=== PATIENT | female | born 1965 | race Caucasian/White ===

== ENCOUNTER 2016-07-30 21:05 | Day surgery (SDC) | payer OTHER ==
[~2016-07-30 21:05] MED LIST: CYMBALTA30 MG; SKELAXIN800 MG PO
[2016-07-30] MEDS ORDERED: PRISTIQ ER100 MG PO (21:26)
[2016-07-30] MEDS ORDERED: SEROQUEL200 M2 PO (21:26)
[2016-07-30] MEDS ORDERED: LAMICTAL100 M2 PO (21:26)
[2016-07-30 22:09] LABS: BASO % 0.2 % (0-2); BASO ABSOLUTE COUNT 0.1 tho/cmm (0.0-0.2); EOS % 0.4 % (0-7); EOSINOPHIL ABSOLUTE COUNT 0.1 tho/cmm (0.0-0.7); HCT-HEMATOCRIT 39.2 % (34.0-49.0); HGB-HEMOGLOBIN 13.5 gm/dl (12.0-15.5); IMMATURE GRANULOCYTES ABSOLUTE 0.05 tho/cmm (0-0.03); IMMATURE GRANULOCYTES PERCENT 0.2 % (0-0.3); LYMPH % 7.5 % (20-45); LYMPH ABSOLUTE COUNT 1.5 tho/cmm (0.8-4.5); MCH (MEAN CORPUSCULAR HGB) 33.3 pg (28.0-32.0); MCHC MEAN CORPUSCULAR HGB CONC 34.4 % (32.0-36.0); MCV (MEAN CELL VOLUME) 96.8 fl (82.0-96.0); MEAN PLATELET VOLUME 10.5 cmc (9.4-12.4); MONO % 7.2 % (0-12); MONOCYTE ABSOLUTE COUNT 1.5 tho/cmm (0.0-1.2); NEUTROPHIL ABSOLUTE COUNT 17.3 tho/cmm (1.6-8.0); NEUTROPHIL-AUTOMATED 17.3 tho/cmm (1.6-8.0); NEUTROPHILS % 84.5 % (40-80); PLATELET COUNT 278 tho/cmm (150-450); RED BLOOD COUNT 4.05 mil/cmm (4.00-5.20); RED CELL DISTRIBUTION WIDTH 11.6 % (12.4-16.4); WHITE BLOOD COUNT 20.5 tho/cmm (4.0-10.0)
[2016-07-30 22:23] LABS: PREGNANCY-SERUM NEGATIVE (NEGATIVE)
[2016-07-30 22:26] LABS: AMYLASE 78 U/L (20-90); ANION GAP 12 mmol/L (0-20); BLOOD UREA NITROGEN 19 mg/dl (6-24); CARBON DIOXIDE-VENOUS 26 mmol/L (22-32); CHLORIDE 105 mmol/l (96-110); CREATININE 0.92 mg/dl (0.50-1.10); GLUCOSE 104 mg/dL (70-110); LIPASE 113 U/L (73-393); POTASSIUM 3.9 mmol/L (3.7-5.1); SODIUM 139 mmol/L (135-145); eGFR VALUE FOR BLACK 85 mL/Min
[2016-07-30 23:46] LABS: URINE APPEARANCE CLEAR; URINE BILIRUBIN NEGATIVE (NEG); URINE BLOOD NEGATIVE (NEG); URINE COLOR YELLOW; URINE GLUCOSE (UA) NEGATIVE (NEG); URINE KETONE NEGATIVE (NEG); URINE LEUKOCYTE ESTERASE NEGATIVE (NEG); URINE NITRITE NEGATIVE (NEG); URINE PROTEIN NEGATIVE (NEG)
== END 2016-07-31 20:55 ==
LOC: EDMED 21:05 → EMR2 07-31 01:23 → CAR1 07-31 01:48 → ORW 07-31 14:21 → PACU 07-31 15:06 → CAR1 07-31 16:45
PROVIDERS: Physician Assistant
PROC: 0DTJ4ZZ Resection of Appendix, Percutaneous Endoscopic Approach (ICD-10-PCS; principal; 2016-07-31)
DX: K35.80 Unspecified acute appendicitis (principal); F41.9 Anxiety disorder, unspecified; F32.9 Major depressive disorder, single episode, unspecified; K21.9 Gastro-esophageal reflux disease without esophagitis; Z79.899 Other long term (current) drug therapy; Z88.8 Allergy status to other drugs, medicaments and biological substances; Z87.11 Personal history of peptic ulcer disease; Z98.890 Other specified postprocedural states
CPT/HCPCS: G0378; J1335; J1644; J2270; J2405; J2550; J2765; J3010; J3480; J7030; Q9967